=== PATIENT | male | born 1955 | race Caucasian/White ===

== ENCOUNTER 2016-07-25 21:41 | Emergency (ER) | payer OTHER ==
[~2016-07-25] VITALS: Ht 167.6 cm; Wt 69.5 kg
[2016-07-25 21:47] VITALS: BP 230/110; PULSE 111; RESP 18; O2SAT 96
[2016-07-25] MEDS ORDERED: HYDR12.57 PO (21:56)
[2016-07-25] MEDS ORDERED: ASPI81CH37 CHEW (21:56)
[2016-07-25] MEDS ORDERED: LABETALOL HCL 100 MG/20 ML VIAL IV PUSH ONE (22:00)
[2016-07-25] MEDS ORDERED: PHENYLEPHRINE HCL 1% NASAL SPRAY 15 ML BTL NASAL ONE (22:00)
--- NOTE | 2016-07-25 22:11 | PD ---
HPI Chief Complaint: Nosebleed Time Seen by Provider: 21:49 Travel History International Travel<30 days: No Contact w/Intl Traveler<30days: No Traveled to known affect area: No History of Present Illness HPI The patient is a 61 year old male who presents to the [facility] emergency department with a history of recurrent nosebleeds over the last 2-3 weeks. He denies having any associated trauma to his nose. He denies having any recent sinus congestion or nasal discharge. The patient reports that he made an appointment with his primary care physician, Dr. Pham saw him today. His last nosebleed prior to arrival today was 3 days ago. He reports that he had not been seen by her primary care physician prior to today for the last 2 years. He reports that he was diagnosed with hypertension. He reported that an ECG was done that showed possible heart hypertrophy and the patient was referred to a baler operator. He was started on hydrochlorothiazide which she picked up earlier today and took for the first time, and a baby aspirin. He reports that he also took his baby aspirin earlier today. The patient reports that approximately 30 minutes prior to arrival he developed a nosebleed after persisted in spite of holding pressure for 15 minutes he called ambulance services. The patient reports that he has been developing bleeding from the left nare. The patient denies any recent fevers, cough, congestion, neck pain, chest pain, shortness of breath, abdominal pain, vomiting, diarrhea, urinary symptoms, or neurologic symptoms. [facility] Past Medical History Narrative Medical The patient's past medical history is significant for newly diagnosed hypertension, rheumatic fever at 1 years of age. Diminished Hearing: No Hypertension: Yes Medical other: Yes (rheumatic fever) Immunizations Current: Yes Past Surgical History Narrative Surgical The patient's past surgical history is significant for an appendectomy. Appendectomy: Yes Social History Alcohol Use: Yes (occassional) Tobacco Use: No Substance Use: No Allergies-Medications (Allergen,Severity, Reaction): Coded Allergies: Penicillin (Verified Allergy, Unknown, 07/25/16) Reported Meds & Prescriptions Reported Meds & Active Scripts Active Lisinopril 10 Mg Tab 10 Mg PO DAILY Reported Aspirin Low Dose (Aspirin) 81 Mg Chew 81 Mg CHEW DAILY Hydrochlorothiazide 12.5 Mg Cap 12.5 Mg PO DAILY Review of Systems Except as stated in HPI: all other systems reviewed are Neg General / Constitutional: No: Fever Eyes: No: Visual changes HENT: Positive: Nosebleed, No: Headaches, Sore Throat, Rhinorrhea, Neck Pain Cardiovascular: No: Chest Pain or Discomfort Respiratory: No: Cough, Shortness of Breath Gastrointestinal: No: Abdominal Pain Genitourinary: No: Dysuria Musculoskeletal: No: Pain Skin: No Rash Neurologic: No: Weakness, Focal Abnormalities, Change in Mentation, Slurred Speech, Sensory Disturbance Psychiatric: No: Depression Endocrine: No: Polydipsia Hematologic/Lymphatic: No: Easy Bruising Physical Exam Narrative General: The patient is a well-developed well-nourished male in no acute distress. The patient is in the process of holding pressure to his nasal bridge on my arrival to the room. The patient's blood pressure on arrival is 230/118. Head and Neck exam: Head is normocephalic atraumatic. Eyes: EOMI, pupils are equal round and reactive to light. Nose: Midline septum with a blood clot noted in the left nare. The patient has dried blood present in the right naris as well. Mouth: Dentition unremarkable. Moist mucus membranes. Posterior oropharynx is not erythematous. No tonsillar hypertrophy. Uvula midline. Airway patent. Neck: No palpable lymphadenopathy. No nuchal rigidity. No thyromegaly. Cardiovascular: Sinus tachycardia in the low 100 without murmurs, gallops, or rubs. Lungs: Clear to auscultation bilaterally. No wheezes, rhonchi, or rales. Abdomen: Soft, without tenderness to palpation in all 4 quadrants of the abdomen. No guarding, rebound, or rigidity. Normal bowel sounds are audible. Extremities: No clubbing, cyanosis, or edema. 2+ pulses in all 4 extremities. No calf tenderness on palpation. Back: No spinous process tenderness to palpation. No costovertebral angle tenderness to palpation. Neurologic Exam: Grossly nonfocal. Skin Exam: No rash noted. Intact skin that is warm and dry. Data Data Last Documented VS Vital Signs Date Time Temp Pulse Resp B/P Pulse Ox O2 Delivery O2 Flow Rate FiO2 07/26/16 00:13 78 16 186/111 93 Room Air Orders Electrocardiogram (07/25/16 22:00) Complete Blood Count With Diff (07/25/16 22:00) Basic Metabolic Panel (Bmp) (07/25/16 22:00) Prothrombin Time / Inr (Pt) (07/25/16 22:00) Act Partial Throm Time (Ptt) (07/25/16 22:00) Urinalysis - C+S If Indicated (07/25/16 22:00) Iv Access Insert/Monitor (07/25/16 22:00) Ecg Monitoring (07/25/16 22:00) Oximetry (07/25/16 22:00) Labetalol Inj (Trandate Inj) (07/25/16 22:00) Phenylephrine 1% Den Spr (Neosynephrine (07/25/16 22:00) Lidocaine 4% Top Soln (Xylocaine 4% Top (07/25/16 22:15) Clonidine (Catapres) (07/25/16 23:30) Potassium Chloride (Kcl) (07/26/16 00:15) Labs Laboratory Tests Test 07/25/16 07/25/16 22:24 22:30 White Blood Count 7.7 TH/MM3 Red Blood Count 5.60 MIL/MM3 Hemoglobin 16.2 GM/DL Hematocrit 46.5 % Mean Corpuscular Volume 83.0 FL Mean Corpuscular Hemoglobin 28.9 PG Mean Corpuscular Hemoglobin 34.9 % Concent Red Cell Distribution Width 13.2 % Platelet Count 150 TH/MM3 Mean Platelet Volume 9.6 FL Neutrophils (%) (Auto) 61.2 % Lymphocytes (%) (Auto) 27.8 % Monocytes (%) (Auto) 9.0 % Eosinophils (%) (Auto) 1.0 % Basophils (%) (Auto) 1.0 % Neutrophils # (Auto) 4.7 TH/MM3 Lymphocytes # (Auto) 2.1 TH/MM3 Monocytes # (Auto) 0.7 TH/MM3 Eosinophils # (Auto) 0.1 TH/MM3 Basophils # (Auto) 0.1 TH/MM3 CBC Comment DIFF FINAL Differential Comment Prothrombin Time 11.9 SEC Prothromb Time International 1.1 RATIO Ratio Activated Partial 28.5 SEC Thromboplast Time Sodium Level 141 MEQ/L Potassium Level 3.3 MEQ/L Chloride Level 105 MEQ/L Carbon Dioxide Level 24.9 MEQ/L Anion Gap 11 MEQ/L Blood Urea Nitrogen 27 MG/DL Creatinine 1.00 MG/DL Estimat Glomerular Filtration 75 ML/MIN Rate Random Glucose 159 MG/DL Calcium Level 8.2 MG/DL Urine Color YELLOW Urine Turbidity CLEAR Urine pH 5.5 Urine Specific [place] 1.019 Urine Protein NEG mg/dL Urine Glucose (UA) NEG mg/dL Urine Ketones NEG mg/dL Urine Occult Blood MOD Urine Nitrite NEG Urine Bilirubin NEG Urine Urobilinogen LESS THAN 2.0 MG/DL Urine Leukocyte Esterase NEG Urine RBC 95 /hpf Urine WBC 2 /hpf Urine Bacteria RARE /hpf Urine Mucus FEW /lpf Microscopic Urinalysis Comment CULT NOT INDICATED MDM Medical Decision Making Medical Screen Exam Complete: Yes Emergency Medical Condition: Yes Medical Record Reviewed: Yes Differential Diagnosis Epistaxis related to ulceration, versus hypertension, versus coagulopathy Narrative Course During the course of the patients emergency department visit, the patients history, examination, and differential diagnosis were reviewed with the patient. The patient had IV access obtained and blood work sent for analysis. The patient was put on a night monitor with oximetry and blood pressure monitoring. The patient's EKG shows a sinus rhythm heart rate of 94, no acute ST segment elevation is noted. The patient was provided labetalol 10 mg IV. The patient will have phenylephrine and lidocaine applied topically to his nasal mucosa if he continues to have bleeding so that the area can be better assessed for possible cauterizing, versus packing. On reexamination, the patient was resting comfortably, his nosebleed had resolved. The patients laboratory studies were reviewed and remarkable for a white count of 7.7, hemoglobin 16.2, platelets 150 with 9 monocytes, PT 11.9, INR 1.1, PTT 28.5, urinalysis shows moderate occult blood, 95 RBCs, 2 wbc's, rare bacteria, culture not indicated. Basic metabolic profile is remarkable for a potassium of 3.3 which was supplemented orally with potassium chloride 20 mg by mouth 1, BUN 27, GFR 75, glucose 159, calcium 8.2. The patient was instructed regarding the microscopic hematuria noted on urinalysis. The patient was given the name of the urologist on-call for follow- up. The patient was also given the name of the operations research manager telephone exchange operator for follow-up. In addition to the hydrochlorothiazide that was previously provided by his primary care physician for his hypertension, lisinopril was added to his regimen. The patient was instructed to hold the baby aspirin over the next week to help prevent recurrent bleeding. The patient was instructed to follow-up with his primary care physician this week again to reassess his blood pressure. After further discussion, the patient reports that he has been on lisinopril in the past and it caused coughing, therefore this prescription was discontinued and the patient was instead placed on metoprolol. The patient is resting comfortably and feels better, is alert and in no distress. The patients results and examination findings were discussed with the patient. The repeat examination is unremarkable and benign. The history, exam, diagnostic testing, and current condition do not suggest any significant pathology to warrant further testing, continued ED treatment, admission, or surgical evaluation at this point. The vital signs have been stable. The patient does not have uncontrollable pain, intractable vomiting, or other significant symptoms. The patient's condition is stable and appropriate for discharge. The patient will pursue further outpatient evaluation with a primary care physician or other designated or consulting physician as indicated in the discharge instructions. The patient expressed understanding and was agreeable with this plan. Diagnosis Primary Impression: Epistaxis Additional Impressions: Hypertension Qualified Code: I10 - Essential hypertension Hematuria Referrals: Chandrakant Mejia MD 1 week Donavan Metz MD 3 days Primary Care Physician 2 days Patient Instructions: General Instructions, Hematuria (ED), Hypertension (ED), Nosebleed (ED) Med/Other Pt SpecificInfo: Prescription(s) given Scripts Metoprolol Tartrate 25 Mg Tab25 Mg PO BID #30 TAB Ref 0 Prov:Jessica Napoles MD 07/26/16 Disposition: 01 DISCHARGE HOME Condition: Stable Jessica Napoles MD Jul 25, 2016 22:10
[2016-07-25] MEDS ORDERED: LIDOCAINE HCL 4% TOPICAL SOLN 50 ML BTL TOPICAL ONE (22:15)
[2016-07-25 22:43] VITALS: BP 198/104; PULSE 84; RESP 16; O2SAT 92
[2016-07-25 22:43] LABS: AUTOMATED NEUTROPHIL # 4.7 TH/MM3 (1.8-7.7); BASOPHIL # 0.1 TH/MM3 (0-0.2); EOSINOPHIL # 0.1 TH/MM3 (0-0.4); HEMATOCRIT 46.5 % (39.0-51.0); HEMO FLAGS DIFF FINAL; LYMPH % 27.8 % (9.0-44.0); LYMPHOCYTE # 2.1 TH/MM3 (1.0-4.8); MEAN CORPUSCULAR HEMOGLOBIN 28.9 PG (27.0-34.0); MEAN CORPUSCULAR HGB CONC 34.9 % (32.0-36.0); NEUT % 61.2 % (16.0-70.0); PLATELET COUNT 150 TH/MM3 (150-450); RED CELL DISTRIBUTION WIDTH 13.2 % (11.6-17.2); WHITE BLOOD COUNT 7.7 TH/MM3 (4.0-11.0)
[2016-07-25 22:46] LABS: BACTERIA, URINE RARE /hpf; BLOOD, URINE MOD (NEG); COMMENT (UR) CULT NOT INDICATED; CULTURE IF INDICATED CULT NOT INDICATED; GLUCOSE,URINE NEG (NEG); KETONE, URINE NEG (NEG); MUCUS URINE FEW /lpf (OCC); NITRITE,URINE NEG (NEG); PH, URINE 5.5 (5.0-8.5); URINE COLOR YELLOW (YELLW/STRAW)
[2016-07-25 22:59] LABS: APTT (PATIENT) 28.5 SEC (24.3-30.1); INTERNATIONAL NORMALIZED RATIO 1.1 RATIO; PROTHROMBIN TIME - PATIENT 11.9 SEC (9.8-11.6)
[2016-07-25 23:22] VITALS: BP 191/101; PULSE 83; RESP 16; O2SAT 94
[2016-07-25] MEDS ORDERED: cloNIDine HCL 0.1 MG TAB PO ONE (23:30)
[2016-07-25] MEDS ORDERED: LISI10TA3 PO (23:31)
[2016-07-25 23:53] LABS: BICARBONATE 24.9 MEQ/L (21.0-32.0); POTASSIUM 3.3 MEQ/L (3.5-5.1)
[2016-07-26 00:13] VITALS: BP 186/111; PULSE 78; RESP 16; O2SAT 93
[2016-07-26] MEDS ORDERED: POTASSIUM CHLORIDE 20 MEQ CONTROLLED RELEASE TAB PO ONE (00:15)
[2016-07-26] MEDS ORDERED: METO25TA3 PO (00:17)
--- NOTE | 2016-07-26 14:49 | EKG ---
Date Performed: 07/25/2016 Time Performed: 22:33:24 PTAGE: 61 years EKG: Sinus rhythm POSSIBLE LEFT ATRIAL ENLARGEMENT POSSIBLE LEFT VENTRICULAR HYPERTROPHY INFERIOR MYOCARDIAL INFARCTIO N NONSPECIFIC ST CHANGES ABNORMAL ECG NO PREVIOUS TRACING DOCTOR: Kirk Puente Interpretating Date/Time 07/26/2016 14:44:01
== END 2016-07-26 00:45 | disposition home or self-care (01) ==
LOC: NEPE 21:41
DX: R04.0 Epistaxis (principal); I10 Essential (primary) hypertension; R31.9 Hematuria, unspecified; R94.31 Abnormal electrocardiogram [ECG] [EKG]
CPT/HCPCS: 80048; 81001; 85025; 85610; 85730; 93005; 96374